=== PATIENT | female | born 1970 | race African-American/Black ===

== ENCOUNTER 2019-02-02 19:24 | Inpatient (IN) | payer OTHER ==
[2019-02-02 23:17] VITALS: BMI 32.1
--- NOTE | 2019-02-03 09:11 | HP ---
COWS - Scale Resting Pulse: 1= [place] 81-100 Sweatin= Chills/Flushing Restless Observation: 1= Difficult to Sit Still Pupil Size: 1= Pupils >than Normal Bone or Joint Aches: 2= Severe Diffuse Aches Runny Nose/ Eye Tearin= Runny Nose/Eyes GI Upset > 30mins: 2= Nausea/Diarrhea Tremor Observation: 2= Slight Tremor Visible Yawning Observation: 1= 1-2x During Session Anxiety or Irritability: 2=Irritable/Anxious Goose Flesh Skin: 0=Smooth Skin COWS Score: 15 CIWA Score Nausea/Vomitin Muscle Tremors: 2 Anxiety: 2 Agitation: 2 Paroxysmal Sweats: 1-Minimal Palms Moist Orientation: 0-Oriented Tacttile Disturbances: 1-Very Mild Itch/Numbness Auditory Disturbances: 1-Very Mild Visual Disturbances: 0-None Headache: 2-Mild CIWA-Ar Total Score: 13 - Admission Criteria [facility]ASAS Guidelines: Admission for Medically Managed Detox: Requires at least one of the followin. CIWA greater than 12 2. Seizures within the past 24 hours 3. Delirium tremens within the past 24 hours 4. Hallucinations within the past 24 hours 5. Acute intervention needed for co occurring medical disorder 6. Acute intervention needed for co occurring psychiatric disorder 7. Severe withdrawal that cannot be handled at a lower level of care (continued vomiting, continued diarrhea, abnormal vital signs) requiring intravenous medication and/or fluids 8. Admission ROS S - [facility] Chief Complaint: i need help to stop alcohol,cocaine,heroin Allergies/Adverse Reactions: Allergies Allergy/AdvReac Type Severity Reaction Status Date / Time [place] Allergy Intermediate Swelling Verified 11/16/14 18:21 tomato Allergy Intermediate Swelling Verified 11/16/14 18:21 History of Present Illness: this 49 years old female with alcohol and cocaine dependence,heroin dependence, stated left the methadone program last detox 11/15/14 to 11/16/14 [facility] not completed history of endocarditis nicotine dependence 1/2 pack ,would like to have gum longest period of sobriety 1 year history of bipolar disorder plan to go to methadone program after detox patient was discharged from methadone [facility]M Exam Limitations: No Limitations - Ebola screening Have you traveled outside of the country in the last 21 days: No (N) Have you had contact with anyone from an Ebola affected area: No Do you have a fever: No - Review of Systems Constitutional: Loss of Appetite, Malaise, Night Sweats, Changes in sleep, Weakness EENT: reports: Tearing, Nose Congestion Respiratory: reports: No Symptoms reported Cardiac: reports: No Symptoms Reported, Other (history of endocarditis) GI: reports: Nausea, Poor Appetite, Abdominal cramping : reports: No Symptoms Reported Musculoskeletal: reports: Back Pain, Muscle Pain, Neck Pain Integumentary: reports: Dryness Neuro: reports: Headache, Tremors Endocrine: reports: No Symptoms Reported Hematology: reports: No Symptoms Reported Psychiatric: reports: No Sypmtoms Reported, Judgement Intact, Mood/Affect Appropiate, Orientated x3, other (bipolar disorder) Patient History - Patient Medical History Hx Anemia: No Hx Asthma: Yes (Pt is on MDI) Hx Chronic Obstructive Pulmonary Disease (COPD): No Hx Cancer: No Hx Cardiac Disorders: No Hx Hypertension: No Hx Hypercholesterolemia: No Hx Pacemaker: No HX Cerebrovascular Accident: No Hx Seizures: No Hx Diabetes: No Hx Gastrointestinal Disorders: No Hx Liver Disease: No Hx Genitourinary Disorders: No Hx Sexually Transmitted Disorders: No Hx Renal Disease (ESRD): No Hx Thyroid Disease: No Hx Human Immunodeficiency Virus (HIV): No (negative last 2017) Hx Hepatitis C: No Hx Depression: Yes Hx Suicide Attempt: No (denies) Hx Bipolar Disorder: Yes Hx Schizophrenia: No Other Medical History: no suicidal,no homicidal - Patient Surgical History Past Surgical History: Yes Hx Abdominal Surgery: Yes (Umbillical hernia repair) Hx Orthopedic Surgery: Yes (R arm fx sx) Other Surgical History: Ectopic x2,BACKSURGERY IN 06/25 Anesthesia Reaction: No - PPD History Previous Implant?: Yes Documented Results: Negative w/o proof Implanted On Prior R Admission?: Yes Date: 11/17/14 PPD to be Administered?: Yes - Reproductive History Patient is a Female of Child Bearing Age (11 -55 yrs old): Yes Last Menstrual Period: 01/29/16 Patient : No - Smoking Cessation Smoking history: Current some day smoker Have you smoked in the past 12 months: Yes Aproximately how many cigarettes per day: 10 Hx Chewing Tobacco Use: No Initiated information on smoking cessation: Yes 'Breaking Loose' booklet given: 02/03/19 - Substance & Tx. History Hx Alcohol Use: Yes Hx Substance Use: Yes Substance Use Type: Alcohol, Cocaine, Heroin Hx Substance Use Treatment: Yes ([facility] 11/15/14 to 11/16/14 not completed) - Substances abused Heroin Substance route: Injection Frequency: Daily Amount used: 10 bags Age of first use: 25 Date of last use: 02/02/19 Alcohol Substance route: Oral Frequency: Daily Amount used: 1/2 pint of henessy/2 of 24 ozs of beer Age of first use: 6 Date of last use: 02/02/19 Cocaine Other (specify): sniff Frequency: Daily Amount used: $40 Age of first use: 27 Date of last use: 02/02/19 Family Disease History - Family Disease History Family Disease History: Other: Mother ( heroin addict) Admission Physical Exam S - Vital Signs Vital Signs: Vital Signs - 24 hr 02/02/19 02/03/19 23:13 08:44 Temperature 98.5 F 98.5 F Pulse Rate 87 87 Respiratory 18 18 Rate Blood Pressure 112/87 112/87 - Physical General Appearance: Yes: Moderate Distress, Tremorous, Irritable, Sweating, Anxious HEENTM: Yes: Normal ENT Inspection, [place], Pharynx Normal Respiratory: Yes: Lungs Clear, Normal Breath Sounds, No Respiratory Distress Neck: Yes: Within Normal Limits, Supple, Trachea in good position Breast: Yes: Breast Exam Deferred Cardiology: Yes: Within Normal Limits, Regular Rhythm, Regular Rate, S1, S2 Abdominal: Yes: Within Normal Limits, Normal Bowel Sounds, Non Tender, Flat, Soft Genitourinary: Yes: Within Normal Limits Back: Yes: Muscle Spasm Extremities: Yes: Tremors Neurological: Yes: Within Normal Limits, reservoir caretaker II-XII NML intact, Fully Oriented, Alert, Motor Strength 5/5 Integumentary: Yes: Dry Lymphatic: Yes: Within Normal Limits - Diagnostic (1) Opioid dependence with withdrawal Current Visit: Yes Status: Acute (2) Alcohol dependence with uncomplicated withdrawal Current Visit: Yes Status: Acute (3) Nicotine dependence Current Visit: No Status: Acute (4) Asthma Current Visit: No Status: Chronic (5) Cocaine dependence Current Visit: No Status: Chronic (6) History of back surgery Current Visit: Yes Status: Acute (7) History of endocarditis Current Visit: Yes Status: Acute (8) History of umbilical hernia repair Current Visit: Yes Status: Acute Cleared for Admission [facility] - Detox or Rehab [facility] Level of Care: Medically Managed Detox Regimen/Protocol: Methadone/Librium Breathalyzer - Breathalyzer Breathalyzer: 0 Urine Drug Screen - Test Device Lot number: [id number] Expiration date: 01/06/20 - Control Is test valid?: Yes - Results Drug screen NEGATIVE: No Urine drug screen results: KATH-Cocaine, MOP-Opiates Inpatient Rehab Admission - Rehab Decision to Admit Inpatient rehab admission?: No
[2019-02-03] MEDS ORDERED: cloNIDine HCL 0.1 MG TABLET PO PRN (09:51)
[2019-02-03] MEDS ORDERED: chlordiazePOXIDE HCL 25 MG CAPSULE PO PRN (09:58)
[2019-02-03] MEDS ORDERED: ACETAMINOPHEN 325 MG TABLET (FP) PO PRN ×2 (09:59→10:30)
[2019-02-03] MEDS ORDERED: MELATONIN 5 MG TABLETS PO PRN (09:59)
[2019-02-03] MEDS ORDERED: MENTHOL/PHENOL 1 EACH UD MM PRN (09:59)
[2019-02-03] MEDS ORDERED: hydrOXYzine PAMOATE 25 MG CAPSULE (FP) PO PRN (09:59)
[2019-02-03] MEDS ORDERED: MAGNESIUM CITRATE 300 ML BOTTLE PO PRN (09:59)
[2019-02-03] MEDS ORDERED: IBUPROFEN 400 MG TABLET (FP) PO PRN (09:59)
[2019-02-03] MEDS ORDERED: BISMUTH SUBSALICYLATE 262 MG/15 ML BTL PO PRN (09:59)
[2019-02-03] MEDS ORDERED: METHOCARBAMOL 500 MG TABLET PO PRN (09:59)
[2019-02-03] MEDS ORDERED: MAG HYDROX/AL HYDROX/SIMETH 30 ML UNIT-DOSE CUP PO PRN (09:59)
[2019-02-03] MEDS ORDERED: MAGNESIUM HYDROX 2400MG/30ML ORAL SUSPENSION 30 ML CUP PO PRN (09:59)
[2019-02-03] MEDS ORDERED: ALBUTEROL SO4 8 GM HFA INHALER IH PRN (10:01)
[2019-02-03] MEDS ORDERED: METHADONE HCL 10 MG TABLET (FOR DETOX USE ONLY) PO ONE ×2 (10:25→23:00)
[2019-02-03] MEDS: chlordiazePOXIDE HCL 25 MG CAPSULE PO SCH ×3 (11:37→22:33)
[2019-02-03] MEDS: PRENATAL VITAMINS W/ FOLIC ACID TABLET (FP) PO SCH (11:38)
[2019-02-03] MEDS: NICOTINE 21 MG/24 HOURS TOPICAL PATCH TD SCH (11:38)
[2019-02-03 12:02] LABS: HEMATOCRIT 41.5 % (32.4-45.2); HEMOGLOBIN 13.1 GM/dL (10.7-15.3); MCH 28.1 pg (25.7-33.7); MCHC 31.5 g/dl (32.0-36.0); MEAN CELL VOLUME 89.3 fl (80-96); MEAN PLT VOLUME 10.1 fl (7.5-11.1); PLATELET COUNT 220 K/MM3 (134-434); RBC 4.65 M/mm3 (3.60-5.2); RDW 14.7 % (11.6-15.6); WHITE BLOOD COUNT 3.3 K/mm3 (4.0-10.0)
[2019-02-03 14:35] LABS: ALBUMIN 3.4 g/dl (3.4-5.0); BILIRUBIN,TOTAL 0.2 mg/dL (0.2-1); CALCIUM 9.3 mg/dL (8.5-10.1); CREATININE 0.9 mg/dL (0.55-1.3); TOT PROT 7.5 g/dl (6.4-8.2)
[2019-02-03] MEDS: NICOTINE POLACRILEX 2 MG GUM BUC PRN (17:21)
--- NOTE | 2019-02-03 19:01 | PN ---
S CIWA - CIWA Score Nausea/Vomitin Muscle Tremors: 2 Anxiety: 3 Agitation: 0-Normal Activity Paroxysmal Sweats: 3 Orientation: 0-Oriented Tacttile Disturbances: 3-Moderate Itch/Numb/Burn Auditory Disturbances: 0-None Visual Disturbances: 2-Mild Sensitivity Headache: 0-None Present CIWA-Ar Total Score: 18 BHS COWS - Scale Resting Pulse: 0= [place] 80 or Below Sweatin= Chills/Flushing Restless Observation: 0= Sits Still Pupil Size: 0= Normal to Room Light Bone or Joint Aches: 2= Severe Diffuse Aches Runny Nose/ Eye Tearin= None GI Upset > 30mins: 3= Vomiting/Diarrhea Tremor Observation of Outstretched Hands: 0= None Yawning Observation: 1= 1-2x During Session Anxiety or Irritability: 2=Irritable/Anxious Goose Flesh Skin: 3=Piloerection COWS Score: 12 BHS Progress Note (SOAP) Subjective: Sweating, Body Aches, Anxious, Vomiting, Diarrhea. Objective: PATIENT A & O X 3. IN NO ACUTE DISTRESS. 02/03/19 19:04 Vital Signs Temperature 98.8 F 02/03/19 18:01 Pulse Rate 62 02/03/19 18:01 Respiratory Rate 18 02/03/19 18:01 Blood Pressure 110/82 02/03/19 18:01 O2 Sat by Pulse Oximetry (%) Laboratory Tests 02/02/19 02/03/19 02/03/19 23:29 10:05 10:05 WBC 3.3 L RBC 4.65 Hgb 13.1 Hct 41.5 D MCV 89.3 MCH 28.1 MCHC 31.5 L RDW 14.7 D Plt Count 220 D MPV 10.1 D Sodium Cancelled Potassium Cancelled Chloride Cancelled Carbon Dioxide Cancelled Anion Gap Cancelled BUN Cancelled Creatinine Cancelled Est GFR (CKD-EPI)AfAm Cancelled Est GFR (CKD-EPI)NonAf Cancelled Random Glucose Cancelled Calcium Cancelled Total Bilirubin Cancelled AST Cancelled ALT Cancelled Alkaline Phosphatase Cancelled Total Protein Cancelled Albumin Cancelled POC Urine HCG, Qual Negative RPR Titer 02/03/19 02/03/19 10:05 10:05 WBC RBC Hgb Hct MCV MCH MCHC RDW Plt Count MPV Sodium 142 Potassium 4.0 Chloride 108 H Carbon Dioxide 29 Anion Gap 5 L BUN 9 Creatinine 0.9 Est GFR (CKD-EPI)AfAm 85.80 Est GFR (CKD-EPI)NonAf 74.03 Random Glucose 90 Calcium 9.3 Total Bilirubin 0.2 AST 14 L ALT 15 Alkaline Phosphatase 118 H Total Protein 7.5 Albumin 3.4 POC Urine HCG, Qual RPR Titer Nonreactive LABS NOTED. Assessment: 02/03/19 19:05 WITHDRAWAL SYMPTOMS. LEUKOPENIA. 02/03/19 19:30 Plan: CONTINUE DETOX. INCREASE DAILY PO WATER INTAKE. PRN PO PEPTO-BISMOL PO FOR DIARRHEA. PRN TIGAN IM FOR NAUSEA / VOMITING.
[2019-02-03] MEDS ORDERED: TRIMETHOBENZAMIDE HCL 200MG/2ML INJ IM PRN (19:26)
[2019-02-03] MEDS: THIAMINE HCL 100 MG TABLET (FP) PO SCH (22:33)
[2019-02-04] MEDS: chlordiazePOXIDE HCL 25 MG CAPSULE PO SCH ×4 (05:13→22:31)
[2019-02-04] MEDS ORDERED: METHADONE HCL 10 MG TABLET (FOR DETOX USE ONLY) PO ONE (10:00)
--- NOTE | 2019-02-04 10:31 | PN ---
S CIWA - CIWA Score Nausea/Vomitin-Mild Nausea/No Vomiting Muscle Tremors: 3 Anxiety: 2 Agitation: 2 Paroxysmal Sweats: 1-Minimal Palms Moist Orientation: 2-Disoriented Date<2 days Tacttile Disturbances: 0-None Auditory Disturbances: 0-None Visual Disturbances: 0-None Headache: 2-Mild CIWA-Ar Total Score: 13 BHS COWS - Scale Resting Pulse: 0= [place] 80 or Below Sweatin= Chills/Flushing Restless Observation: 0= Sits Still Pupil Size: 0= Normal to Room Light Bone or Joint Aches: 1= Mild Discomfort Runny Nose/ Eye Tearin= Nasal Congestion GI Upset > 30mins: 2= Nausea/Diarrhea Tremor Observation of Outstretched Hands: 2= Slight Tremor Visible Yawning Observation: 0= None Anxiety or Irritability: 2=Irritable/Anxious Goose Flesh Skin: 3=Piloerection COWS Score: 12 S Progress Note (SOAP) Subjective: less tremor today body aches restlessness tired Objective: 02/04/19 10:32 Vital Signs Temperature 96.9 F L 02/04/19 09:19 Pulse Rate 69 02/04/19 09:19 Respiratory Rate 18 02/04/19 09:19 Blood Pressure 113/85 02/04/19 09:19 O2 Sat by Pulse Oximetry (%) Laboratory Last Values WBC 3.3 K/mm3 (4.0-10.0) L 02/03/19 10:05 RBC 4.65 M/mm3 (3.60-5.2) 02/03/19 10:05 Hgb 13.1 GM/dL (10.7-15.3) 02/03/19 10:05 Hct 41.5 % (32.4-45.2) D 02/03/19 10:05 MCV 89.3 fl (80-96) 02/03/19 10:05 MCH 28.1 pg (25.7-33.7) 02/03/19 10:05 MCHC 31.5 g/dl (32.0-36.0) L 02/03/19 10:05 RDW 14.7 % (11.6-15.6) D 02/03/19 10:05 Plt Count 220 K/MM3 (134-434) D 02/03/19 10:05 MPV 10.1 fl (7.5-11.1) D 02/03/19 10:05 Sodium 142 mmol/L (136-145) 02/03/19 10:05 Potassium 4.0 mmol/L (3.5-5.1) 02/03/19 10:05 Chloride 108 mmol/L (98-107) H 02/03/19 10:05 Carbon Dioxide 29 mmol/L (21-32) 02/03/19 10:05 Anion Gap 5 MMOL/L (8-16) L 02/03/19 10:05 BUN 9 mg/dL (7-18) 02/03/19 10:05 Creatinine 0.9 mg/dL (0.55-1.3) 02/03/19 10:05 Est GFR (CKD-EPI)AfAm 85.80 02/03/19 10:05 Est GFR (CKD-EPI)NonAf 74.03 02/03/19 10:05 Random Glucose 90 mg/dL (74-106) 02/03/19 10:05 Calcium 9.3 mg/dL (8.5-10.1) 02/03/19 10:05 Total Bilirubin 0.2 mg/dL (0.2-1) 02/03/19 10:05 AST 14 U/L (15-37) L 02/03/19 10:05 ALT 15 U/L (13-61) 02/03/19 10:05 Alkaline Phosphatase 118 U/L (45-117) H 02/03/19 10:05 Total Protein 7.5 g/dl (6.4-8.2) 02/03/19 10:05 Albumin 3.4 g/dl (3.4-5.0) 02/03/19 10:05 POC Urine HCG, Qual Negative 02/03/19 15:27 RPR Titer Nonreactive (NONREACTIVE) 02/03/19 10:05 lab noted Assessment: 02/04/19 10:32 alcohol benzo opiate withdrawal sx Plan: continue detox
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
[2019-02-04] MEDS: NICOTINE 21 MG/24 HOURS TOPICAL PATCH TD SCH (10:38)
[2019-02-04] MEDS: NICOTINE POLACRILEX 2 MG GUM BUC PRN (10:38)
[2019-02-04] MEDS: PRENATAL VITAMINS W/ FOLIC ACID TABLET (FP) PO SCH (10:38)
[2019-02-04] MEDS ORDERED: QUEtiapine FUMARATE 50 MG TABLET PO SCH (22:00)
[2019-02-04] MEDS: THIAMINE HCL 100 MG TABLET (FP) PO SCH (22:31)
[2019-02-05] MEDS: chlordiazePOXIDE HCL 25 MG CAPSULE PO SCH (04:53)
[2019-02-05] MEDS ORDERED: METHADONE HCL 10 MG TABLET (FOR DETOX USE ONLY) PO ONE (10:00)
[2019-02-05] MEDS ORDERED: chlordiazePOXIDE HCL 10 MG CAPSULE PO SCH (11:00)
[2019-02-05] MEDS ORDERED: chlordiazePOXIDE HCL 10 MG CAPSULE PO PRN (11:00)
[2019-02-05] MEDS: PRENATAL VITAMINS W/ FOLIC ACID TABLET (FP) PO SCH (11:10)
[2019-02-05] MEDS: NICOTINE 21 MG/24 HOURS TOPICAL PATCH TD SCH (11:11)
[2019-02-05 12:58] VITALS: BP 124/80; PULSE 68; TEMP 98.7
--- NOTE | 2019-02-05 18:01 | PN ---
S CIWA - CIWA Score Nausea/Vomitin-No Nausea/No Vomiting Muscle Tremors: 2 Anxiety: 3 Agitation: 0-Normal Activity Paroxysmal Sweats: 2 Orientation: 0-Oriented Tacttile Disturbances: 1-Very Mild Itch/Numbness Auditory Disturbances: 0-None Visual Disturbances: 1-Very Mild Sensitivity Headache: 0-None Present CIWA-Ar Total Score: 9 S COWS - Scale Resting Pulse: 0= [place] 80 or Below Sweatin= Chills/Flushing Restless Observation: 0= Sits Still Pupil Size: 0= Normal to Room Light Bone or Joint Aches: 1= Mild Discomfort Runny Nose/ Eye Tearin= None GI Upset > 30mins: 0= None Tremor Observation of Outstretched Hands: 2= Slight Tremor Visible Yawning Observation: 1= 1-2x During Session Anxiety or Irritability: 2=Irritable/Anxious Goose Flesh Skin: 0=Smooth Skin COWS Score: 7 S Progress Note (SOAP) Subjective: Tremors, Anxious, Body Aches, Fatigue, Sweating. Objective: PATIENT A & O X 3, OBSERVED AMBULATING ON UNIT UNASSISTED. IN NO ACUTE DISTRESS. 02/05/19 18:00 Vital Signs Temperature 98.7 F 02/05/19 12:58 Pulse Rate 68 02/05/19 12:58 Respiratory Rate 18 02/05/19 12:58 Blood Pressure 124/80 02/05/19 12:58 O2 Sat by Pulse Oximetry (%) Laboratory Tests 02/02/19 02/03/19 02/03/19 23:29 10:05 10:05 WBC 3.3 L RBC 4.65 Hgb 13.1 Hct 41.5 D MCV 89.3 MCH 28.1 MCHC 31.5 L RDW 14.7 D Plt Count 220 D MPV 10.1 D Sodium Cancelled Potassium Cancelled Chloride Cancelled Carbon Dioxide Cancelled Anion Gap Cancelled BUN Cancelled Creatinine Cancelled Est GFR (CKD-EPI)AfAm Cancelled Est GFR (CKD-EPI)NonAf Cancelled Random Glucose Cancelled Calcium Cancelled Total Bilirubin Cancelled AST Cancelled ALT Cancelled Alkaline Phosphatase Cancelled Total Protein Cancelled Albumin Cancelled POC Urine HCG, Qual Negative RPR Titer 02/03/19 02/03/19 02/03/19 10:05 10:05 15:27 WBC RBC Hgb Hct MCV MCH MCHC RDW Plt Count MPV Sodium 142 Potassium 4.0 Chloride 108 H Carbon Dioxide 29 Anion Gap 5 L BUN 9 Creatinine 0.9 Est GFR (CKD-EPI)AfAm 85.80 Est GFR (CKD-EPI)NonAf 74.03 Random Glucose 90 Calcium 9.3 Total Bilirubin 0.2 AST 14 L ALT 15 Alkaline Phosphatase 118 H Total Protein 7.5 Albumin 3.4 POC Urine HCG, Qual Negative RPR Titer Nonreactive LABS NOTED. Assessment: 02/05/19 18:00 WITHDRAWAL SYMPTOMS. LEUKOPENIA. 02/05/19 18:01 Plan: CONTINUE DETOX.
--- NOTE | 2019-02-05 18:07 | DS ---
[facility] Detox Discharge Summary Admission Date: 02/03/19 Discharge Date: 02/05/19 - History Present History: Alcohol Dependence, Opioid Dependence Additional Comments: DESPITE EFFORTS BY LEGAL PROCESS SPECIALIST AND BY NURSING STAFF TO ADDRESS PATIENT'S MEDICAL NEEDS / CONCERNS, PATIENT DOES NOT WISH TO REMAIN TO COMPLETE DETOX REGIMEN. RISKS OF LEAVING DETOX UNIT AGAINST MEDICAL ADVICE AND PRIOR TO COMPLETION OF DETOX REGIMEN EXPLAINED TO PATIENT. PATIENT ADVISED TO GO IMMEDIATELY TO NEAREST ER SHOULD ANY INTOLERABLE WITHDRAWAL / DETOX SYMPTOMS DEVELOP AT ANY TIME. PATIENT VERBALIZED UNDERSTANDING OF ALL INFORMATION / RECOMMENDATIONS PRESENTED TO HIM PRIOR TO DEPARTURE FROM DETOX UNIT. PATIENT LEFT DETOX UNIT IN STABLE MEDICAL CONDITION. Pertinent Past History: Asthma, Depression, Bipolar Disorder, History Of Endocarditis, Nicotine Dependence, History Of Back Surgery, History Of Umbilical Hernia Repair, Leukopenia (While Admitted For Detox). - Physical Exam Results Vital Signs: Vital Signs Temperature 98.7 F 02/05/19 12:58 Pulse Rate 68 02/05/19 12:58 Respiratory Rate 18 02/05/19 12:58 Blood Pressure 124/80 02/05/19 12:58 O2 Sat by Pulse Oximetry (%) Pertinent Admission Physical Exam Findings: WITHDRAWAL SYMPTOMS. Laboratory Tests 02/02/19 02/03/19 02/03/19 23:29 10:05 10:05 WBC 3.3 L RBC 4.65 Hgb 13.1 Hct 41.5 D MCV 89.3 MCH 28.1 MCHC 31.5 L RDW 14.7 D Plt Count 220 D MPV 10.1 D Sodium Cancelled Potassium Cancelled Chloride Cancelled Carbon Dioxide Cancelled Anion Gap Cancelled BUN Cancelled Creatinine Cancelled Est GFR (CKD-EPI)AfAm Cancelled Est GFR (CKD-EPI)NonAf Cancelled Random Glucose Cancelled Calcium Cancelled Total Bilirubin Cancelled AST Cancelled ALT Cancelled Alkaline Phosphatase Cancelled Total Protein Cancelled Albumin Cancelled POC Urine HCG, Qual Negative RPR Titer 02/03/19 02/03/19 02/03/19 10:05 10:05 15:27 WBC RBC Hgb Hct MCV MCH MCHC RDW Plt Count MPV Sodium 142 Potassium 4.0 Chloride 108 H Carbon Dioxide 29 Anion Gap 5 L BUN 9 Creatinine 0.9 Est GFR (CKD-EPI)AfAm 85.80 Est GFR (CKD-EPI)NonAf 74.03 Random Glucose 90 Calcium 9.3 Total Bilirubin 0.2 AST 14 L ALT 15 Alkaline Phosphatase 118 H Total Protein 7.5 Albumin 3.4 POC Urine HCG, Qual Negative RPR Titer Nonreactive LABS NOTED. - Treatment Hospital Course: Detox Protocol Followed, Detoxed Safely - Diagnosis (1) Alcohol dependence with uncomplicated withdrawal Status: Acute (2) History of back surgery Status: Acute (3) History of endocarditis Status: Acute (4) History of umbilical hernia repair Status: Acute (5) Leukopenia Status: Acute Qualifiers: Leukopenia type: unspecified Qualified Code(s): D72.819 - Decreased white blood cell count, unspecified (6) Nicotine dependence Status: Acute Qualifiers: Nicotine product type: cigarettes Substance use status: uncomplicated Qualified Code(s): F17.210 - Nicotine dependence, cigarettes, uncomplicated (7) Opioid dependence with withdrawal Status: Acute (8) Cocaine dependence Status: Chronic Qualifiers: Substance use status: uncomplicated Qualified Code(s): F14.20 - Cocaine dependence, uncomplicated (9) Substance induced mood disorder Status: Acute (10) Substance-induced sleep disorder Status: Acute - AMA Did Patient Leave Against Medical Advice: Yes (PATIENT DID NOT WISH TO REMAIN TO COMPLETE DETOX REGIMEN.)
[2019-02-06] MEDS ORDERED: METHADONE (DETOX) 10 MG, METHADONE (DETOX) 5 MG PO ONE (10:00)
[2019-02-06] MEDS ORDERED: METHADONE HCL 10 MG TABLET (FOR DETOX USE ONLY) PO ONE (10:00)
[2019-02-06] MEDS ORDERED: chlordiazePOXIDE HCL 10 MG CAPSULE PO SCH (11:00)
[2019-02-07] MEDS ORDERED: METHADONE HCL 5 MG TABLET (FOR DETOX USE ONLY) PO ONE (06:00)
[2019-02-07] MEDS ORDERED: METHADONE HCL 10 MG TABLET (FOR DETOX USE ONLY) PO ONE (10:00)
[2019-02-08] MEDS ORDERED: METHADONE HCL 5 MG TABLET (FOR DETOX USE ONLY) PO ONE (06:00)
== END 2019-02-05 14:50 | disposition left against medical advice (07) | DRG 770 ==
LOC: YASAS 19:24 → Y3N 02-03 08:21
PROVIDERS: ADMIT Surgery; ATTEND Surgery
PROC: HZ2ZZZZ Detoxification Services for Substance Abuse Treatment (ICD-10-PCS; principal; 2019-02-03)
DX: F11.23 Opioid dependence with withdrawal (principal); F10.230 Alcohol dependence with withdrawal, uncomplicated; F14.20 Cocaine dependence, uncomplicated; F17.210 Nicotine dependence, cigarettes, uncomplicated; F19.24 Other psychoactive substance dependence with psychoactive substance-induced mood disorder; F19.282 Other psychoactive substance dependence with psychoactive substance-induced sleep disorder; D72.819 Decreased white blood cell count, unspecified; J45.909 Unspecified asthma, uncomplicated
CPT/HCPCS: 36415; 80053; 81025; 85027; 86593

== ENCOUNTER 2023-07-14 10:31 | Inpatient (IN) | payer OTHER ==
[2023-07-14 11:41] VITALS: BMI 26.6
[2023-07-14] MEDS ORDERED: NALOXONE HCL 0.4 MG/ML VIAL IM PRN (12:27)
[2023-07-14] MEDS ORDERED: MAGNESIUM HYDROX 2400MG/30ML ORAL SUSPENSION 30 ML CUP PO PRN (12:27)
[2023-07-14] MEDS ORDERED: cloNIDine HCL 0.1 MG TABLET PO PRN (12:27)
[2023-07-14] MEDS ORDERED: MAG HYDROX/AL HYDROX/SIMETH 30 ML UNIT-DOSE CUP PO PRN (12:27)
[2023-07-14] MEDS ORDERED: BENZOCAINE/MENTHOL (CHLORASEPTIC ) LOZENGE MM PRN (12:27)
[2023-07-14] MEDS ORDERED: ACETAMINOPHEN 325 MG TABLET (FP) PO PRN (12:27)
[2023-07-14] MEDS ORDERED: BENZONATATE 200 MG CAPSULE PO PRN (12:27)
[2023-07-14] MEDS ORDERED: IBUPROFEN 600 MG TABLET (FP) PO PRN (12:27)
[2023-07-14] MEDS ORDERED: BISMUTH SUBSALICYLATE 524 MG/30 ML PO PRN (12:27)
[2023-07-14] MEDS ORDERED: chlordiazePOXIDE HCL 25 MG CAPSULE PO PRN (12:27)
[2023-07-14] MEDS ORDERED: NALOXONE HCL (KLOXXADO) 8 MG SPRAY NS PRN (12:27)
[2023-07-14] MEDS ORDERED: LOPERAMIDE HCL 2 MG CAPSULE PO PRN (12:27)
[2023-07-14] MEDS ORDERED: ONDANSETRON *ODT* 4 MG TABLET SL PRN (12:27)
[2023-07-14] MEDS ORDERED: IBUPROFEN 400 MG TABLET (FP) PO PRN (12:27)
[2023-07-14] MEDS ORDERED: hydrOXYzine PAMOATE 25 MG CAPSULE (FP) PO PRN (12:27)
[2023-07-14] MEDS ORDERED: POLYETHYLENE GLYCOL (HEALTHYLAX) 3350 17 GM PACKET PO PRN (12:27)
[2023-07-14] MEDS ORDERED: guaiFENesin 600 MG TABLET.ER (FP) PO PRN (12:27)
[2023-07-14] MEDS ORDERED: NICOTINE POLACRILEX 2 MG GUM BUC PRN (12:27)
[2023-07-14] MEDS ORDERED: methaDONE HCL 10 MG TABLET (FOR DETOX USE ONLY) PO ONE (13:45)
[2023-07-14] MEDS: chlordiazePOXIDE HCL 25 MG CAPSULE PO SCH ×2 (17:38→22:00)
[2023-07-14] MEDS: THIAMINE HCL 100 MG TABLET (FP) PO SCH (22:00)
[2023-07-14] MEDS ORDERED: MELATONIN 5 MG TABLETS PO SCH (22:00)
[2023-07-15] MEDS: chlordiazePOXIDE HCL 25 MG CAPSULE PO SCH ×4 (05:31→22:16)
[2023-07-15] MEDS: PRENATAL VITAMINS W/ FOLIC ACID TABLET (FP) PO SCH (10:03)
[2023-07-15] MEDS: NICOTINE 14 MG/24 HOURS TOPICAL PATCH TD SCH (10:03)
[2023-07-15 11:55] LABS: HEMATOCRIT 38.7 % (32.4-45.2); HEMOGLOBIN 12.8 GM/dL (10.7-15.3); MCH 29.4 pg (25.7-33.7); MEAN CELL VOLUME 89.1 fl (80-96); MEAN PLT VOLUME 9.4 fl (7.5-11.1); PLATELET COUNT 213 10^3/uL (134-434); POTASSIUM 3.7 mmol/L (3.5-5.1); RBC 4.34 M/mm3 (3.60-5.2); RDW 13.8 % (11.6-15.6); WHITE BLOOD COUNT 3.6 K/mm3 (4.0-10.0)
[2023-07-15 12:21] LABS: CALCIUM 8.5 mg/dL (8.5-10.1)
[2023-07-15 12:22] LABS: ALBUMIN 2.7 g/dl (3.4-5.0); BLOOD UREA NITROGEN 13.4 mg/dL (7-18)
[2023-07-15 12:25] LABS: CREATININE 0.8 mg/dL (0.55-1.3)
[2023-07-15 12:27] LABS: BILIRUBIN,TOTAL 0.6 mg/dL (0.2-1); TOT PROT 6.4 g/dl (6.4-8.2)
[2023-07-15] MEDS: THIAMINE HCL 100 MG TABLET (FP) PO SCH (22:16)
[2023-07-15] MEDS: QUEtiapine FUMARATE 50 MG TABLET PO SCH (22:16)
[2023-07-16] MEDS: chlordiazePOXIDE HCL 25 MG CAPSULE PO SCH ×4 (05:48→22:19)
[2023-07-16] MEDS ORDERED: methaDONE HCL 10 MG TABLET (FOR DETOX USE ONLY) PO ONE (10:00)
[2023-07-16] MEDS: NICOTINE 14 MG/24 HOURS TOPICAL PATCH TD SCH (10:04)
[2023-07-16] MEDS: PRENATAL VITAMINS W/ FOLIC ACID TABLET (FP) PO SCH (10:10)
[2023-07-16] MEDS ORDERED: cloNIDine HCL 0.1 MG TABLET PO PRN (12:27)
[2023-07-16] MEDS: QUEtiapine FUMARATE 50 MG TABLET PO SCH (22:18)
[2023-07-16] MEDS: THIAMINE HCL 100 MG TABLET (FP) PO SCH (22:19)
[2023-07-17] MEDS ORDERED: chlordiazePOXIDE HCL 10 MG CAPSULE PO PRN
[2023-07-17] MEDS: chlordiazePOXIDE HCL 10 MG CAPSULE PO SCH ×4 (05:16→22:42)
[2023-07-17] MEDS: NICOTINE 14 MG/24 HOURS TOPICAL PATCH TD SCH (10:41)
[2023-07-17] MEDS: PRENATAL VITAMINS W/ FOLIC ACID TABLET (FP) PO SCH (10:41)
[2023-07-17] MEDS: THIAMINE HCL 100 MG TABLET (FP) PO SCH (22:41)
[2023-07-17] MEDS: QUEtiapine FUMARATE 50 MG TABLET PO SCH (22:41)
[2023-07-18] MEDS: chlordiazePOXIDE HCL 10 MG CAPSULE PO SCH ×2 (05:34→17:41)
[2023-07-18] MEDS ORDERED: ALBUTEROL SO4 HFA INHALER IH PRN (09:23)
[2023-07-18] MEDS ORDERED: methaDONE HCL 10 MG TABLET (FOR DETOX USE ONLY) PO ONE (10:00)
[2023-07-18] MEDS: PRENATAL VITAMINS W/ FOLIC ACID TABLET (FP) PO SCH (10:32)
[2023-07-18] MEDS: NICOTINE 14 MG/24 HOURS TOPICAL PATCH TD SCH (10:33)
[2023-07-18] MEDS: PENICILLIN G BENZATHINE 2,400,000 UNIT/4 ML PFS IM ONE ×2 (10:38→12:43)
[2023-07-18] MEDS ORDERED: BENZOCAINE/MENTH/CETYLPYRD CL 1 EACH LOZENGE MM PRN (19:33)
[2023-07-18] MEDS ORDERED: guaiFENesin 200 MG/10 ML 10 ML UNIT-DOSE CUPS PO PRN (19:33)
[2023-07-18 21:23] VITALS: RESP 16
[2023-07-18] MEDS: THIAMINE HCL 100 MG TABLET (FP) PO SCH (22:55)
[2023-07-18] MEDS: QUEtiapine FUMARATE 50 MG TABLET PO SCH (22:56)
[2023-07-19] MEDS ORDERED: chlordiazePOXIDE HCL 10 MG CAPSULE PO ONE (05:00)
[2023-07-19 09:28] VITALS: BP 106/69; PULSE 85; TEMP 97.8
[2023-07-19] MEDS: PRENATAL VITAMINS W/ FOLIC ACID TABLET (FP) PO SCH (10:36)
[2023-07-19] MEDS: NICOTINE 14 MG/24 HOURS TOPICAL PATCH TD SCH (10:36)
== END 2023-07-19 11:20 | disposition home or self-care (01) | DRG 773 ==
LOC: YASAS 10:31 → Y6N 13:26
PROVIDERS: ADMIT Allergy & Immunology; ATTEND Surgery
PROC: HZ2ZZZZ Detoxification Services for Substance Abuse Treatment (ICD-10-PCS; principal; 2023-07-14)
DX: F11.23 Opioid dependence with withdrawal (principal); F10.230 Alcohol dependence with withdrawal, uncomplicated; F14.20 Cocaine dependence, uncomplicated; F12.20 Cannabis dependence, uncomplicated; F17.210 Nicotine dependence, cigarettes, uncomplicated; F31.81 Bipolar II disorder; F19.282 Other psychoactive substance dependence with psychoactive substance-induced sleep disorder; F19.24 Other psychoactive substance dependence with psychoactive substance-induced mood disorder; R76.8 Other specified abnormal immunological findings in serum; Z86.19 Personal history of other infectious and parasitic diseases; Z62.810 Personal history of physical and sexual abuse in childhood
CPT/HCPCS: 36415; 80053; 80307; 81025; 85027; 86593; 86780; 87635; 87811

== ENCOUNTER 2024-07-31 15:28 | Inpatient (IN) | payer OTHER ==
[2024-07-31 15:58] VITALS: BMI 18.9
[2024-07-31] MEDS ORDERED: BENZOCAINE/MENTHOL (CHLORASEPTIC ) LOZENGE MM PRN (16:31)
[2024-07-31] MEDS ORDERED: NICOTINE POLACRILEX 2 MG GUM BUC PRN (16:31)
[2024-07-31] MEDS ORDERED: BENZONATATE 200 MG CAPSULE PO PRN (16:31)
[2024-07-31] MEDS ORDERED: IBUPROFEN 400 MG TABLET (FP) PO PRN (16:31)
[2024-07-31] MEDS ORDERED: NICOTINE POLACRILEX 2 MG LOZENGE BC PRN (16:31)
[2024-07-31] MEDS ORDERED: guaiFENesin 600 MG TABLET.ER (FP) PO PRN (16:31)
[2024-07-31] MEDS ORDERED: BISMUTH SUBSALICYLATE 524 MG/30 ML PO PRN (16:31)
[2024-07-31] MEDS ORDERED: ACETAMINOPHEN 325 MG TABLET (FP) PO PRN (16:31)
[2024-07-31] MEDS ORDERED: LOPERAMIDE HCL 2 MG CAPSULE PO PRN (16:31)
[2024-07-31] MEDS ORDERED: DICYCLOMINE HCL 10 MG CAPSULE PO PRN (16:31)
[2024-07-31] MEDS ORDERED: NALOXONE (NARCAN) HCL 4 MG/0.1 ML SPRAY NS PRN (16:31)
[2024-07-31] MEDS ORDERED: P-EPHED 60MG/TRIPROLIDI 2.5MG TABLET PO PRN (16:31)
[2024-07-31] MEDS: METHOCARBAMOL 500 MG TABLET PO PRN (22:21)
[2024-07-31] MEDS: THIAMINE 100 MG TABLET PO SCH (22:21)
[2024-07-31] MEDS: MELATONIN 5 MG TABLETS PO SCH (22:21)
[2024-08-01] MEDS: hydrOXYzine PAMOATE 25 MG CAPSULE (FP) PO PRN (01:31)
[2024-08-01] MEDS: IBUPROFEN 600 MG TABLET (FP) PO PRN (01:31)
[2024-08-01 08:26] LABS: POTASSIUM 3.6 mmol/L (3.5-5.1)
[2024-08-01 08:27] LABS: CALCIUM 9.1 mg/dL (8.5-10.1); HEMATOCRIT 40.3 % (32.4-45.2); HEMOGLOBIN 13.4 GM/dL (10.7-15.3); MCH 29.4 pg (25.7-33.7); MCHC 33.1 g/dl (32.0-36.0); MEAN CELL VOLUME 88.7 fl (80-96); MEAN PLT VOLUME 9.4 fl (7.5-11.1); PLATELET COUNT 268 10^3/uL (134-434); RBC 4.55 M/mm3 (3.60-5.2); RDW 14.7 % (11.6-15.6); WHITE BLOOD COUNT 3.4 K/mm3 (4.0-10.0)
[2024-08-01 08:28] LABS: ALBUMIN 2.9 g/dl (3.4-5.0); BLOOD UREA NITROGEN 9.6 mg/dL (7-18)
[2024-08-01 08:31] LABS: CREATININE 0.9 mg/dL (0.55-1.3)
[2024-08-01 08:33] LABS: BILIRUBIN,TOTAL 0.3 mg/dL (0.2-1); TOT PROT 6.5 g/dl (6.4-8.2)
[2024-08-01] MEDS: methaDONE HCL 10 MG TABLET PO ONE (10:25)
[2024-08-01] MEDS: PRENATAL VITAMINS W/ FOLIC ACID TABLET (FP) PO SCH (10:26)
[2024-08-01] MEDS: diazePAM 5 MG TABLET PO PRN (11:48)
[2024-08-01] MEDS ORDERED: methaDONE HCL 10 MG TABLET PO PRN (12:12)
[2024-08-01] MEDS: QUEtiapine FUMARATE 100 MG TABLET (FP) PO SCH (22:32)
[2024-08-02] MEDS: ONDANSETRON *ODT* 4 MG TABLET SL PRN (09:00)
[2024-08-02] MEDS: methaDONE 40 MG, methaDONE 10 MG PO ONE (09:17)
[2024-08-03] MEDS ORDERED: cloNIDine HCL 0.1 MG TABLET PO PRN ×2
[2024-08-03] MEDS: methaDONE 40 MG, methaDONE 20 MG PO ONE (10:34)
[2024-08-03] MEDS: AMOXICILLIN 500 MG CAPSULE (FP) PO ONE (14:36)
[2024-08-03] MEDS: POLYETHYLENE GLYCOL (HEALTHYLAX) 3350 17 GM PACKET PO PRN (16:00)
[2024-08-03] MEDS: MAG HYDROX/AL HYDROX/SIMETH 30 ML UNIT-DOSE CUP PO PRN (22:25)
[2024-08-03] MEDS: CHLORHEXIDINE GLUCONATE 0.12% 15ML CUP MM SCH (22:25)
[2024-08-03] MEDS: AMOXICILLIN 500 MG CAPSULE (FP) PO SCH (22:25)
[2024-08-04] MEDS: methaDONE 40 MG, methaDONE 30 MG PO ONE (10:09)
[2024-08-04] MEDS: MAGNESIUM HYDROX 2400MG/30ML ORAL SUSPENSION 30 ML CUP PO PRN (22:37)
[2024-08-05] MEDS: methaDONE HCL 40 MG DISPERSABLE TABLET PO ONE (10:09)
[2024-08-06] MEDS: methaDONE 80 MG, methaDONE 10 MG PO ONE (09:36)
[2024-08-07 06:15] VITALS: RESP 16
[2024-08-07 09:24] VITALS: BP 114/76; PULSE 70; TEMP 97.6
[2024-08-07] MEDS: methaDONE 80 MG, methaDONE 10 MG PO ONE (09:48)
[2024-08-07] MEDS: NALOXONE (NYS OPIOID OVERDOSE PROGRAM) 4 MG/0.1 ML SPRAY NS PRN (10:48)
== END 2024-08-07 09:55 | disposition other institution (70) | DRG 773 ==
LOC: YASAS 15:28 → Y6N 16:42
PROVIDERS: ADMIT Allergy & Immunology; ATTEND Surgery
PROC: HZ2ZZZZ Detoxification Services for Substance Abuse Treatment (ICD-10-PCS; principal; 2024-07-31)
DX: F11.23 Opioid dependence with withdrawal (principal); F10.20 Alcohol dependence, uncomplicated; F14.20 Cocaine dependence, uncomplicated; F13.20 Sedative, hypnotic or anxiolytic dependence, uncomplicated; F17.210 Nicotine dependence, cigarettes, uncomplicated; F19.282 Other psychoactive substance dependence with psychoactive substance-induced sleep disorder; F19.280 Other psychoactive substance dependence with psychoactive substance-induced anxiety disorder; F31.9 Bipolar disorder, unspecified; K04.7 Periapical abscess without sinus; M54.50 Low back pain, unspecified; G89.29 Other chronic pain; Z62.810 Personal history of physical and sexual abuse in childhood; Z63.8 Other specified problems related to primary support group; Z86.19 Personal history of other infectious and parasitic diseases
CPT/HCPCS: 36415; 80053; 80305; 85027; 86593; 86780; 93005; 93010; Q0162